=== PATIENT | female | born 2000 | race Two or more races ===

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

== ENCOUNTER 2023-05-24 12:20 | Emergency (ER) | payer OTHER ==
[~2023-05-24] VITALS: Ht 162.6 cm; Wt 56.7 kg
[2023-05-24 15:36] LABS: HEMATOCRIT 38.4 % (36.0-45.00); HEMOGLOBIN 13.1 g/dL (12.0-15.00); MEAN CORPUSCULAR HEMOGLOBIN 30.8 pg (27.00-32.0); MEAN CORPUSCULAR HGB CONC 34.2 g/dl (32.0-36.0); PLATELET COUNT 294 K/uL (150-450); RED BLOOD COUNT 4.26 M/uL (4.00-6.00); RED CELL DISTRIBUTION WIDTH 13.4 % (11.5-14.5)
[2023-05-24 15:39] LABS: URINE APPEARANCE Clear; URINE BILIRRUBIN Negative (NEGATIVE); URINE BLOOD Negative; URINE COLOR Yellow; URINE GLUCOSE Negative (NEGATIVE); URINE LEUKOCYTE Small; URINE NITRATE Negative; URINE PROTEIN Negative (NEGATIVE); URINE UROBILINOGEN 0.2 E.U./dl
[2023-05-24 15:42] LABS: URINE BACTERIA 1578.5 uL (0.0-1933); URINE EPITHELIAL CELLS 14.6 uL (0.0-38.8); URINE WBC 45.1 uL (0.0-23.2)
[2023-05-24 15:51] LABS: INR 1.12; PARTIAL THROMBOPLASTIN TIME 30.2 SECONDS (22.0-34.0); PROTHROMBIN TIME 11.7 SECONDS (9.0-11.5)
[2023-05-24 15:57] LABS: ALBUMIN 3.6 gm/dL (3.4-5.0); BILIRUBIN TOTAL 0.35 mg/dL (0.3-1.2); CALCIUM 8.8 mg/dL (8.5-10.1); CREATININE SERUM 0.93 mg/dL (0.55-1.02); GFR 74.71; GLOBULINA 3.5 G/DL (2.4-3.5); POTASSIUM 3.74 mEq/L (3.5-5.1); TOTAL PROTEIN 7.1 gm/dL (6.4-8.2)
[2023-05-24] MEDS ORDERED: COLACE100 MG PO (19:57)
== END 2023-05-24 21:09 ==
LOC: ER 12:20
PROVIDERS: Nurse Practitioner Family
DX: K59.00 Constipation, unspecified (principal); R10.2 Pelvic and perineal pain; R10.31 Right lower quadrant pain; R10.9 Unspecified abdominal pain; E16.1 Other hypoglycemia

== ENCOUNTER 2024-05-17 08:28 | Emergency (ER) | payer OTHER ==
[~2024-05-17] VITALS: Ht 162.6 cm; Wt 63.5 kg
[~2024-05-17 08:28] MED LIST changes: +COLACE100 MG PO
[2024-05-17] MEDS ORDERED: 0.9 % SODIUM CHLORIDE 1,000 ML IV STA (08:48)
[2024-05-17] MEDS ORDERED: ONDANSETRON HCL 2 MG/ML VIAL IV STA (09:15)
[2024-05-17 09:17] LABS: HEMATOCRIT 45.9 % (36.0-45.00); HEMOGLOBIN 15.2 g/dL (12.0-15.00); MEAN CELL VOLUME 90.9 fL (80.00-100.00); MEAN CORPUSCULAR HEMOGLOBIN 30.2 pg (27.00-32.0); MEAN CORPUSCULAR HGB CONC 33.2 g/dl (32.0-36.0); PLATELET COUNT 376 K/uL (150-450); RED BLOOD COUNT 5.05 M/uL (4.00-6.00)
[2024-05-17] MEDS ORDERED: ONDANSETRON HCL 2 MG/ML VIAL ONE (09:17)
[2024-05-17 09:41] LABS: CALCIUM 9.9 mg/dL (8.5-10.1); CREATININE SERUM 0.9 mg/dL (0.55-1.02); GFR 76.92; POTASSIUM 4.08 mEq/L (3.5-5.1)
== END 2024-05-17 12:27 | disposition home or self-care (01) ==
LOC: ER 08:30
PROVIDERS: Emergency Medicine
DX: K29.70 Gastritis, unspecified, without bleeding (principal)

== ENCOUNTER → 2024-08-22 | Emergency (ER) | payer OTHER ==
[~2024-08-22] VITALS: Ht 165.1 cm; Wt 56.7 kg
[~2024-08-22] MED LIST changes: +ABILIFY5 MG PO
== END | disposition home or self-care (01) ==
LOC: ER 16:07
DX: R07.9 Chest pain, unspecified (principal)

== ENCOUNTER 2025-02-24 04:12 | Emergency (ER) | payer OTHER ==
[~2025-02-24] VITALS: Ht 162.6 cm; Wt 63.5 kg
[2025-02-24] MEDS ORDERED: KETO10TA2 PO (04:39)
[2025-02-24] MEDS ORDERED: ABILIFY2 MG PO (04:39)
[2025-02-24] MEDS ORDERED: 0.9 % SODIUM CHLORIDE 1,000 ML IV SCH (07:30)
[2025-02-24] MEDS ORDERED: NITROGLYCERIN 0.4 MG TAB.SUBL SL ONE (07:30)
[2025-02-24 08:00] LABS: BASO % 0.8 % (0.1-1.2); EOS # 0.06 (0.04-0.54); EOS % 0.7 % (0.7-7.0); LYMPH # 2.65 (1.18-3.74); LYMPH % 29.5 % (19.3-53.1); MEAN PLATELET VOLUME 9.60 fl (9.4-12.4); MONO # 0.50 (0.24-0.82); MONO % 5.6 % (4.7-12.5); NEUT # 5.67 (1.56-6.13); NEUT % 63.2 % (34.0-71.1); RED CELL DISTRIBUTION WIDTH 12.2 % (11.6-14.4)
[2025-02-24 08:48] LABS: ALT/SGPT 21.0 U/L (12-78); AST/SGOT 16.0 U/L (15-37); BILIRUBIN TOTAL 0.3 mg/dL (0.3-1.2); BUN CREA RATIO 12.0 (7.0-25.0); CKMB 1.4 NG/ML (0.5-3.6); CREATININE SERUM 0.69 mg/dL (0.55-1.02); GFR 103.66; GLOBULINA 3.7 G/DL (2.4-3.5); GLUCOSE FASTING 57.0 mg/dL (65-100); OSMOLALITY SERUM 279.0 MOSM/KG (275-295)
== END 2025-02-24 09:35 | disposition home or self-care (01) ==
LOC: ER 04:12
PROVIDERS: Student in an Organized Health Care Education/Training Program
DX: R07.9 Chest pain, unspecified (principal); E16.1 Other hypoglycemia; F14.90 Cocaine use, unspecified, uncomplicated